=== PATIENT | female | born 1995 | race Caucasian/White ===

== ENCOUNTER 2019-02-02 13:06 | Outpatient (CLI) | payer OTHER ==
--- NOTE | 2019-02-02 14:02 | ULT ---
LEFT BREAST ULTRASOUND: HISTORY: A 23-year-old female with palpable abnormality and mastodynia at the 2 o'clock position of the left b reast. FINDINGS: Sonographic evaluation of the 2 o'clock position of the left breast demonstrates no abnormality. Further evaluation (including biopsy) should be based on clinical findings/suspicion. POS: [id number]
== END 2019-02-02 13:07 | disposition home or self-care (01) ==
LOC: BICULT 13:06
PROVIDERS: ATTEND Obstetrics & Gynecology
DX: N64.4 Mastodynia (principal)